=== PATIENT | female | born 1955 | race Caucasian/White ===

== ENCOUNTER 2020-05-15 11:32 | Observation (INO) | payer BC ==
[2020-05-15] MEDS ORDERED: ASPIRIN 81 MG PO STA (11:41)
--- NOTE | 2020-05-15 11:59 | ED ---
Chest Pain HPI - General Chief Complaint: Chest Pain Stated Complaint: chest pain Time Seen by Provider: 05/15/20 11:41 Source: patient Mode of arrival: ambulatory Limitations: no limitations - History of Present Illness Initial Comments: 64-year-old female with history of atrial fibrillation on eliquis presenting today for chief complaint of chest pain. Patient states yesterday evening she developed a aching dull sensation in her center of her chest as well as between her shoulder blades. She states she had some indigestion at that time. She denies any ripping or tearing sensation or severe pain. Patient states she had some slight pain with swallowing but denies any difficulty swallowing. Patient denies any abdominal pain she denies any jaw or arm pain she denies any shortness of breath syncope she denies any unilateral leg swelling cough, LE edema, or hemoptysis, denies hx DVT/PE. Denies pain with deep breath. Denies smoking history, denies family history of CAD, denies HTN, or DM> Patient denies vomiting or experiencing these symptoms before. WHen symptoms persisted today she decided to present to the ER for further evaluation and possible treatment. Patient appears well on arrival no acute distress, very pleasant. - Related Data Home Medications Medication Instructions Recorded Confirmed Acetaminophen Tab [Tylenol] 500 mg PO ONCE PRN 05/15/20 05/15/20 Apixaban [Eliquis] 5 mg PO BID 05/15/20 05/15/20 Atorvastatin [Lipitor] 10 mg PO MOWEFR 05/15/20 05/15/20 DULoxetine HCL [Cymbalta] 20 mg PO HS 05/15/20 05/15/20 DULoxetine HCL [Cymbalta] 30 mg PO HS 05/15/20 05/15/20 Levothyroxine Sodium 137 mcg PO DAILY 05/15/20 05/15/20 Multivitamins, Thera [Multivitamin 1 tab PO DAILY 05/15/20 05/15/20 (formulary)] Sotalol [Betapace] 80 mg PO BID 05/15/20 05/15/20 traZODone HCL [Desyrel] 50 mg PO HS 05/15/20 05/15/20 Allergies Allergy/AdvReac Type Severity Reaction Status Date / Time No Known Allergies Allergy Verified 05/15/20 13:45 Review of Systems ROS Statement: Those systems with pertinent positive or pertinent negative responses have been documented in the HPI. ROS Other: All systems not noted in ROS Statement are negative. EKG Findings - EKG Comments: EKG Findings:: Ventricular rate 67 bpm, OH interval 128 ms, QR sabianist 78 ms, QT/QTC 450/475. No ST elevation or depression. Past Medical History Past Medical History: Atrial Fibrillation, Hyperlipidemia History of Any Multi-Drug Resistant Organisms: None Reported Past Surgical History: Cholecystectomy, Hysterectomy Additional Past Surgical History / Comment(s): bunion Past Psychological History: Depression Smoking Status: Never smoker Past Alcohol Use History: None Reported Past Drug Use History: None Reported - Past Family History Father Family Medical History: No Reported History Additional Family Medical History / Comment(s): Father was healthy and lived to be 93 yrs old. Mother Family Medical History: Cancer Additional Family Medical History / Comment(s): Mother of colon cancer. She also had lung cancer. She was a smoker. General Exam - General Exam Comments Initial Comments: General: The patient is awake and alert, in no distress Eye: Pupils are equal, round and reactive to light, extra-ocular movements are intact. No nystagmus. There is normal conjunctiva bilaterally. No signs of icterus. Ears, nose, mouth and throat: There are moist mucous membranes and no oral lesions. Neck: The neck is supple, there is no tenderness or JVD. Cardiovascular: There is a regular rate and rhythm. No murmur, rub or gallop is appreciated. Respiratory: Lungs are clear to auscultation, respirations are non-labored, breath sounds are equal. No wheezes, stridor, rales, or rhonchi. Gastrointestinal: Soft, non-distended, non-tender abdomen without masses or organomegaly noted. There is no rebound or guarding present. Musculoskeletal: Normal ROM, no tenderness. Strength 5/5. Sensation intact. Radial and DP pulses equal bilaterally 2+. Neurological: A&O x 3. CN II-XII intact grossly, There are no obvious motor or sensory deficits. Coordination appears grossly intact. Speech is normal. Skin: Skin is warm and dry and no rashes or lesions are noted. No calf pain or swelling, no LE edema. Psychiatric: Cooperative, appropriate mood & affect, normal judgment. Limitations: no limitations Course Vital Signs 05/15/20 05/15/20 05/15/20 11:36 12:30 13:00 Temperature 98 F Pulse Rate 67 62 60 Respiratory 18 16 18 Rate Blood Pressure 106/71 100/71 110/81 O2 Sat by Pulse 97 96 94 L Oximetry 05/15/20 13:30 Temperature Pulse Rate 60 Respiratory 15 Rate Blood Pressure 101/66 O2 Sat by Pulse 96 Oximetry Chest Pain MDM - MDM 64yo female presenting to the ER today for chest discomfort, back fullness. CTA (-) for dissection. EKG no acute findings in normal sinus pt on eliquis. Patient CXR WNL. Patient troponin (-) initially. Patient case discussed inclu ding symptoms, labs, cxr, history with attending Dr. Bazan who is agreeable to admission. He contacted accepting admission provider. Disposition Clinical Impression: Chest discomfort, Throat pain, Indigestion Disposition: ADMITTED IP TO THIS HOSP Condition: Stable Is patient prescribed a controlled substance at d/c from ED?: No Time of Disposition: 12:57 Decision to Admit Reason: Admit from EC Decision Date: 05/15/20 Decision Time: 12:57
[2020-05-15 12:09] LABS: Basophils % (A) 0 %; Eosinophils # (A) 0.2 k/uL (0-0.7); Eosinophils % (A) 3 %; HGB 14.5 gm/dL (11.4-16.0); Lymphocytes # (A) 1.4 k/uL (1.0-4.8); Lymphocytes % (A) 27 %; MCH 30.1 pg (25.0-35.0); MCHC 32.3 g/dL (31.0-37.0); MCV 93.2 fL (80.0-100.0); Mean Platelet Volume 8.6; Monocytes # (A) 0.4 k/uL (0-1.0); Monocytes % (A) 7 %; Neutrophils % (A) 59 %; Platelet Count 218 k/uL (150-450); RBC 4.83 m/uL (3.80-5.40); RDW 12.5 % (11.5-15.5)
[2020-05-15 12:17] LABS: ALT 30 U/L (4-34); AST 35 U/L (14-36); African American GFR (CKD) >90 (>60 ml/min/1.73 sqM); Albumin 4.1 g/dL (3.5-5.0); Alkaline Phosphatase 61 U/L (38-126); Anion Gap 6 mmol/L; Blood Urea Nitrogen 22 mg/dL (7-17); Calcium 9.4 mg/dL (8.4-10.2); Carbon Dioxide 26 mmol/L (22-30); Chloride 105 mmol/L (98-107); Glucose 99 mg/dL (74-99); Magnesium 2.2 mg/dL (1.6-2.3); Non-African American GFR(CKD) >90 (>60 ml/min/1.73 sqM); Potassium 4.3 mmol/L (3.5-5.1); Prothrombin Time 10.6 sec (9.0-12.0); Sodium 137 mmol/L (137-145); Total Bilirubin 0.5 mg/dL (0.2-1.3); Total Protein 6.6 g/dL (6.3-8.2)
[2020-05-15 12:18] LABS: Partial Thromboplastin Time 26.4 sec (22.0-30.0)
--- NOTE | 2020-05-15 12:27 | XR ---
EXAMINATION TYPE: XR chest 2V DATE OF EXAM: 05/15/2020 COMPARISON: NONE HISTORY: Chest pain TECHNIQUE: Frontal and lateral views of the chest are obtained. FINDINGS: There is no focal air space opacity, pleural effusion, or pneumothorax seen. The cardiac silhouette size is within normal limits. The osseous structures are intact. There are overlying car diac leads. Aorta is dense. IMPRESSION: No acute cardiopulmonary process.
[2020-05-15] MEDS ORDERED: NITROGLYCERIN SL TABS 0.4 MG TAB SUBLINGUAL PRN (12:54)
--- NOTE | 2020-05-15 13:54 | CT ---
EXAMINATION TYPE: CT angio thor/abd pel aorta DATE OF EXAM: 05/15/2020 COMPARISON: None HISTORY: CP radiating to back CT DLP: 1530.9 mGycm CONTRAST: CTA thoracic and abdominal aorta with 3-D reconstruction is performed and without and with IV Contras t, patient injected with 100 ml mL of Isovue 370. Contrast CTA of the thoracic and abdominal aorta was performed from the lung apex through the base of the pelvis. 3-D reconstruction imaging obtained at a separate workstation. CT Chest: THORACIC AORTA: There is no evidence for aneurysm. No dissection or mediastinal hematoma. Mild ath eromatous changes are seen. LUNGS: The lungs are clear and free of infiltrate or atelectasis. No pulmonary nodule or mass is det ected. No pleural effusion or CT evidence of interstitial lung disease. MEDIASTINUM: The heart is not enlarged. No evidence for mediastinal mass or adenopathy. HILAR STRUCTURES: No evidence for mass. No hilar adenopathy is appreciated. OTHER: No significant abnormality. CONTRAST CT ABDOMEN AND PELVIS ABDOMENAL AORTA: No evidence for abdominal aortic aneurysm. No dissection. Iliac vessels are symmet baljit and patent. LIVER/GB- No significant abnormality is seen. PANCREAS- No significant abnormality is seen. SPLEEN- No significant abnormality is seen. ADRENALS- No significant abnormality is seen. KIDNEYS/BLADDER- No significant abnormality is seen. BOWEL- No Significant abnormality GENITAL ORGANS: No gross abnormality seen. LYMPH NODES- No greater than 1cm abdominal or pelvic lymph nodes are appreciated. OSSEOUS STRUCTURES- No significant abnormality is seen. OTHER- No significant abnormality is seen. IMPRESSION- No evidence for aneurysm or dissection.
[2020-05-15] MEDS ORDERED: ATORVASTATIN 10 MG TAB PO SCH (16:30)
--- NOTE | 2020-05-15 16:37 | P.HPIM ---
History of Present Illness this is a pleasant 64 years old female with past medical history of atrial fibrillation, hyperlipidemia on Eliquis, depression, hypothyroidism. she is a patient of Dr. Bravo.presents because of chest pain. She had this chest pain l ast night and when she woke up this morning she still have this chest pain, central radiating to the back between both shoulder blades, about 7/10 in severity felt like sharp, no her chest pain is gone but this morning when she drank coffee she got more worse chest pain and she decided to come to the hospital concern about her heart and stomach illness. No associated symptoms, no dyspnea, no sweating, no nausea vomiting, no palpitation, no dizziness. She denies smoking, alcohol or illicit drug She follow up with research subject as an outpatient for her A. fib with Dr. Moody vitals stable.Labs including CBC, INR, BMP and liver enzymes were unremarkable. Troponin is less then 0.012 EKG showed normal sinus rhythm at [address]-T changes.chest x- ray: No acute process. CTA of the thoracic and abdominal aorta: No aneurysm, no dissection. Lungs are clear with no infiltrate no pulmonary nodule or mass. No enlarged mediastinum. in the emergency room patient got aspirin 325 mg and to nitroglycerin Review of Systems CONSTITUTIONAL: No fever, no malaise, no fatigue. HEENT: No recent visual problems or hearing problems. Denied any sore throat. CARDIOVASCULAR: No orthopnea, PND, no palpitations, no syncope. PULMONARY: No shortness of breath, no cough, no hemoptysis. GASTROINTESTINAL: No diarrhea, no nausea, no vomiting, no abdominal pain. Normoactive bowel sounds. NEUROLOGICAL: No headaches, no weakness, no numbness. HEMATOLOGICAL: Denies any bleeding or petechiae. GENITOURINARY: Denies any burning micturition, frequency, or urgency. MUSCULOSKELETAL/RHEUMATOLOGICAL: Denies any joint pain, swelling, or any muscle pain. ENDOCRINE: Denies any polyuria or polydipsia. Past Medical History Past Medical History: Atrial Fibrillation, Hyperlipidemia Additional Past Medical History / Comment(s): Paroxysmal Afib, hypothyroid, bronchitis. History of Any Multi-Drug Resistant Organisms: None Reported Past Surgical History: Cholecystectomy, Hysterectomy Additional Past Surgical History / Comment(s): bunion Past Anesthesia/Blood Transfusion Reactions: No Reported Reaction, Motion Sickness Past Psychological History: Depression Smoking Status: Never smoker Past Alcohol Use History: None Reported Past Drug Use History: None Reported - Past Family History Father Family Medical History: No Reported History Additional Family Medical History / Comment(s): Father was healthy and lived to be 93 yrs old. Mother Family Medical History: Cancer Additional Family Medical History / Comment(s): Mother of colon cancer. She also had lung cancer. She was a smoker. Medications and Allergies Home Medications Medication Instructions Recorded Confirmed Type Acetaminophen Tab [Tylenol] 500 mg PO ONCE PRN 05/15/20 05/15/20 History Apixaban [Eliquis] 5 mg PO BID 05/15/20 05/15/20 History Atorvastatin [Lipitor] 10 mg PO MOWEFR 05/15/20 05/15/20 History DULoxetine HCL [Cymbalta] 20 mg PO HS 05/15/20 05/15/20 History DULoxetine HCL [Cymbalta] 30 mg PO HS 05/15/20 05/15/20 History Levothyroxine Sodium 137 mcg PO DAILY 05/15/20 05/15/20 History Multivitamins, Thera [Multivitamin 1 tab PO DAILY 05/15/20 05/15/20 History (formulary)] Sotalol [Betapace] 80 mg PO BID 05/15/20 05/15/20 History traZODone HCL [Desyrel] 50 mg PO HS 05/15/20 05/15/20 History Allergies Allergy/AdvReac Type Severity Reaction Status Date / Time No Known Allergies Allergy Verified 05/15/20 13:45 Physical Exam Vitals: Vital Signs Temp Pulse Pulse Resp BP BP Pulse Ox 05/15/20 15:50 99 05/15/20 14:59 98.2 F 63 14 118/76 99 05/15/20 14:00 64 21 102/68 96 05/15/20 13:30 60 15 101/66 96 05/15/20 13:00 60 18 110/81 94 L 05/15/20 12:30 62 16 100/71 96 05/15/20 11:36 98 F 67 18 106/71 97 Intake and Output 05/15/20 05/15/20 05/15/20 06:59 14:59 22:59 Other: Voiding Method Toilet # Voids 1 Weight 78.925 kg GENERAL: The patient is alert and oriented x3, not in any acute distress. Well developed, well nourished. HEENT: Pupils are round and equally reacting to light. EOMI. No scleral icterus. No conjunctival pallor. Normocephalic, atraumatic. No pharyngeal erythema. No thyromegaly. CARDIOVASCULAR: S1 and S2 present. No murmurs, rubs, or gallops. PULMONARY: Chest is clear to auscultation, no wheezing or crackles. ABDOMEN: Soft, nontender, nondistended, normoactive bowel sounds. No palpable organomegaly. MUSCULOSKELETAL: No joint swelling or deformity. EXTREMITIES: No cyanosis, clubbing, or pedal edema. NEUROLOGICAL: Gross neurological examination did not reveal any focal deficits. SKIN: No rashes. No petechiae Results CBC & Chem 7: 05/15/20 12:00 05/15/20 12:00 Labs: Abnormal Lab Results - Last 24 Hours (Table) 05/15/20 Range/Units 12:00 BUN 22 H (7-17) mg/dL Thrombosis Risk Factor Assmnt - Choose All That Apply Any of the Below Risk Factors Present?: Yes Each Factor Represents 1 point: Obesity (BMI >25) Other Risk Factors: Yes Each Risk Factor Represents 2 Points: Age 61-74 years Other congenital or acquired thrombophilia - If yes, enter type in comment: No Thrombosis Risk Factor Assessment Total Risk Factor Score: 3 Thrombosis Risk Factor Assessment Level: Moderate Risk Assessment and Plan Assessment: chest pain, Rule out cardiac causes Atrial fibrillation on Eliquis Hyperlipidemia Depression Hypothyroidism Plan: this is a pleasant 64 years old female who presents because of chest pain. With the suture troponin. EKG. Cardiology consult. Also will and antiacids and refer the patient for her PCP to check her blood her stomach illness once patient has been cleared by research subject and she agrees Labs and medication were reviewed.. Continue same treatment. Continue with symptomatic treatment. Resume home medication. Monitor lytes and vitals. DVT and GI prophylaxis. Further recommendations of the clinical course of the patient DVT prophylaxis: Eliquis GI Prophylaxis: Protonix Prognosis is guarded
[2020-05-15] MEDS: PANTOPRAZOLE 40 MG/10 ML VIAL IVP SCH (17:17)
[2020-05-15] MEDS ORDERED: DULoxetine HCL 30 MG CAPSULE.DR PO SCH (21:00)
[2020-05-15] MEDS ORDERED: DULoxetine HCL 20 MG CAPSULE.DR PO SCH (21:00)
[2020-05-15] MEDS ORDERED: traZODone HCL 50 MG TAB PO SCH (21:00)
[2020-05-15] MEDS: APIXABAN 5 MG TAB PO SCH (22:08)
[2020-05-15] MEDS: SOTALOL 80 MG TAB PO SCH (22:09)
[2020-05-16] MEDS ORDERED: LEVOTHYROXINE 137 MCG TAB PO SCH (06:30)
[2020-05-16 08:34] LABS: Cholesterol 181 mg/dL (<200); HDL Cholesterol 61 mg/dL (40-60); LDL Cholesterol,Calculated 98 mg/dL (0-99); Triglycerides 108 mg/dL (<150)
[2020-05-16] MEDS ORDERED: ASPIRIN 325 MG TAB PO SCH (09:00)
[2020-05-16] MEDS: APIXABAN 5 MG TAB PO SCH (09:24)
[2020-05-16] MEDS: PANTOPRAZOLE 40 MG/10 ML VIAL IVP SCH (09:24)
[2020-05-16] MEDS: SOTALOL 80 MG TAB PO SCH (09:25)
--- NOTE | 2020-05-16 09:53 | CONS ---
CONSULTATION HISTORY OF PRESENT ILLNESS: Juliet Griffiths is a 64-year-old lady who has her primary care in the [place] area, sees Dr. 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 She carries a diagnosis of paroxysmal atrial fibrillation and hypothyroidism. She also has hyperlipidemia. She is on Eliquis, levothyroxine and Lipitor and Betapace. She came into the hospital because of an episode of what she describes as discomfort in the chest. The quality of the pain is very atypical. It occurred when she was at rest, not when she was doing any physical activity. Achy feeling in the center of the chest with some radiation to the back and also to the shoulder blades. She had a CAT scan of the chest, which did not reveal any aortic pathology. She has 3 negative troponins, 2 unremarkable EKGs and complete resolution of chest pain. She is doing well at the time of my evaluation, virtually asymptomatic. PAST MEDICAL HISTORY: 1. Paroxysmal atrial fibrillation. 2. Hypothyroidism. 3. Hyperlipidemia. PAST SURGICAL HISTORY: Status post hysterectomy and cholecystectomy. ALLERGIES: None. MEDICATIONS: Include sotalol 80 mg b.i.d., levothyroxine 137 mcg daily, trazodone, Cymbalta, Eliquis 5 mg b.i.d. and Lipitor 10 mg every other day. PHYSICAL EXAMINATION: VITAL SIGNS: On examination, blood pressure is 108/70. Pulse rate 70 regular. HEENT unremarkable. Fundus was not examined by me. NECK is supple. No JVD. I do not hear a carotid bruit. There is no thyromegaly. HEART exam reveals S1, S2 heard normally. No rub, murmur or gallop. LUNGS are clear. ABDOMEN is soft, nontender. No organomegaly. LOWER EXTREMITIES reveal normal pulses. No edema. CENTRAL NERVOUS SYSTEM is normal. EKG revealed sinus mechanism, no acute changes. IMPRESSION: 1. Atypical chest pain. 2. History of paroxysmal atrial fibrillation, now in sinus rhythm on Eliquis. 3. History of hypothyroidism. RECOMMENDATIONS: I am recommending that her pain is atypical. She had a negative stress test about 2 years ago. We will increase activity, ambulate her briskly in the hallways. If she has no further symptoms, she can be discharged with the understanding she should have a stress test next week. The patient wishes to have the stress test through her molding supervisor and she will make it a point to have this done next week. If she has any further symptoms while she is here, I will recommend coronary angiography. Discussed my thoughts in detail with the patient. We will increase activity and if no symptoms, she will be discharged. Thank you very much for the consult. FUENTES / TEO: [id number] /
[2020-05-16 14:25] VITALS: BP 100/60; PULSE 60; RESP 14; TEMP 98.2
--- NOTE | 2020-05-16 23:43 | DS ---
DISCHARGE SUMMARY DATE OF SERVICE: 05/16/2020. FINAL DIAGNOSES: 1. Chest pain, myocardial infarction ruled out, possible unstable angina. 2. Atrial fibrillation, on Eliquis. 3. Hyperlipidemia. 4. History of depression. 5. Hypothyroidism. DISCHARGE DISPOSITION: The patient will be discharged in stable condition with guarded prognosis. HISTORY OF PRESENT ILLNESS: This 64-year-old woman with the past medical history of multiple medical problems, presented with chest pain, myocardial infarction ruled out. Cardiology recommended outpatient followup. The patient is also following the patient's own preboarder. I recommend the patient to obtain outpatient stress test. Otherwise, a thoracic aortic CT scan was also done during the hospitalization. On exam, vitals are stable. Cardiovascular S1, S2. Abdomen soft. Nervous system: No focal deficits. The thoracic aortic CT was normal. DISCHARGE INSTRUCTIONS/MEDICATION: 1. Diet is cardiac diet. 2. Activity limited until followup. 3. Follow up with Dr. Gricel Bravo in 1-2 days. 4. Follow up with Cardiology as recommended for possible stress test. 5. Medications are sotalol 80 mg p.o. b.i.d. 6. Cymbalta 50 mg q.h.s. 7. Desyrel 50 mg q.h.s. 8. Eliquis 5 mg p.o. b.i.d. 9. Levothyroxine 137 mcg p.o. daily. 10.Lipitor 10 mg p.o. Monday, Monday, Monday, as mentioned earlier. 11.Multivitamins 1 p.o. daily. 12.Tylenol 500 mg. 13.Nitrostat 0.4 sublingual p.r.n. Once again the patient discharged in stable condition with guarded prognosis. MMODL / IJN: [id number] /
== END 2020-05-16 14:45 | disposition home or self-care (01) ==
LOC: EC 11:32 → 1SOBS 12:54 → INTOOBSV 12:55 → OBSVTOIN 12:55 → 1SOBS 14:47 → UNDODISIN 05-16 14:45
PROVIDERS: ADMIT Internal Medicine; ATTEND Internal Medicine
DX: R07.89 Other chest pain (principal); R07.0 Pain in throat; K30 Functional dyspepsia; I48.0 Paroxysmal atrial fibrillation; E78.5 Hyperlipidemia, unspecified; F32.9 Major depressive disorder, single episode, unspecified; E03.9 Hypothyroidism, unspecified; E66.9 Obesity, unspecified; Z68.27 Body mass index [BMI] 27.0-27.9, adult; Z03.818 Encounter for observation for suspected exposure to other biological agents ruled out; Z79.01 Long term (current) use of anticoagulants; Z79.899 Other long term (current) drug therapy; Z79.890 Hormone replacement therapy; Z90.49 Acquired absence of other specified parts of digestive tract; Z90.710 Acquired absence of both cervix and uterus; Z98.890 Other specified postprocedural states; Z87.09 Personal history of other diseases of the respiratory system; Z80.0 Family history of malignant neoplasm of digestive organs; Z81.2 Family history of tobacco abuse and dependence; Z80.1 Family history of malignant neoplasm of trachea, bronchus and lung
CPT/HCPCS: 93005 ×2; 96374; 96376; 99285; 36415; 80061; 80053; 83690; 83735; 84484; 85025; 85610; 85730; 71046; 71275; 74174; G0378 ×2; U0003; C9113 ×2; Q9967

== ENCOUNTER → 2021-11-29 | Outpatient (CLI) | payer BC ==
--- NOTE | 2021-11-29 12:30 | MM ---
Reason for exam: screening (asymptomatic). Last mammogram was performed 1 year and 3 months ago. History: Patient is postmenopausal. Physical Findings: A clinical breast exam by your physician is recommended on an annual basis and results should be correlated with mammographic findings. MG 3D Screening Mammo W/Cad Bilateral CC and MLO view(s) were taken. Prior study comparison: August 24, 2020, mammogram, performed at [facility]. The breast tissue is heterogeneously dense. This may lower the sensitivity of mammography. There are benign appearing vascular calcifications bilaterally. There is no discrete abnormality. ASSESSMENT: Benign, BI-RAD 2 RECOMMENDATION: Routine screening mammogram of both breasts in 1 year.
== END | disposition home or self-care (01) ==
LOC: RADMAMWWP 07:14
PROVIDERS: ATTEND Obstetrics & Gynecology
DX: Z12.31 Encounter for screening mammogram for malignant neoplasm of breast (principal); Z78.0 Asymptomatic menopausal state
CPT/HCPCS: 77063; 77067

== ENCOUNTER 2022-02-24 10:34 | Observation (INO) | payer BC ==
[2022-02-24 11:33] LABS: Basophils % (A) 1 %; Eosinophils # (A) 0.2 k/uL (0-0.7); Eosinophils % (A) 4 %; HCT 44.4 % (34.0-46.0); HGB 14.6 gm/dL (11.4-16.0); Lymphocytes # (A) 1.3 k/uL (1.0-4.8); Lymphocytes % (A) 27 %; MCH 30.3 pg (25.0-35.0); MCHC 32.8 g/dL (31.0-37.0); MCV 92.3 fL (80.0-100.0); Monocytes # (A) 0.3 k/uL (0-1.0); Monocytes % (A) 7 %; Neutrophils # (A) 2.8 k/uL (1.3-7.7); Neutrophils % (A) 60 %; Platelet Count 213 k/uL (150-450); RDW 12.8 % (11.5-15.5); WBC 4.7 k/uL (3.8-10.6)
[2022-02-24 11:41] LABS: INR 1.1 (<1.2)
[2022-02-24 11:42] LABS: Partial Thromboplastin Time 27.5 sec (22.0-30.0); Prothrombin Time 11.5 sec (9.0-12.0)
[2022-02-24 11:57] LABS: Appearance,Urine Clear (Clear); Bilirubin,Urine Negative (Negative); Blood,Urine Negative (Negative); Color,Urine Yellow; Glucose,Urine (UA) Negative (Negative); Ketones,Urine Trace (Negative); Leukocyte Esterase,Urine Negative (Negative); Nitrite,Urine Negative (Negative); Protein,Urine Negative (Negative); Specific Gravity,Urine 1.017 (1.001-1.035); Urobilinogen,Urine <2.0 mg/dL (<2.0)
[2022-02-24 12:01] LABS: ALT 19 U/L (4-34); AST 30 U/L (14-36); African American GFR (CKD) >90 (>60 ml/min/1.73 sqM); Alkaline Phosphatase 53 U/L (38-126); Anion Gap 6 mmol/L; Blood Urea Nitrogen 22 mg/dL (7-17); Calcium 9.4 mg/dL (8.4-10.2); Carbon Dioxide 28 mmol/L (22-30); Chloride 102 mmol/L (98-107); Glucose 95 mg/dL (74-99); Magnesium 2.3 mg/dL (1.6-2.3); Non-African American GFR(CKD) >90 (>60 ml/min/1.73 sqM); Sodium 136 mmol/L (137-145); Total Bilirubin 0.5 mg/dL (0.2-1.3); Total Protein 6.6 g/dL (6.3-8.2)
[2022-02-24] MEDS ORDERED: SODIUM CHLORIDE 0.9% 500 ML 500 ML IV ONE (12:03)
--- NOTE | 2022-02-24 12:15 | XR ---
EXAMINATION TYPE: XR chest 2V DATE OF EXAM: 02/24/2022 COMPARISON: 05/15/2020 HISTORY: 66-year-old female with chest pain TECHNIQUE: PA and lateral views FINDINGS: Heart normal size. Mild hyperinflation and mild interstitial prominence. Some mild central peribronch ial cuffing is noted. Some strandy atelectasis in the lower lungs. No consolidation or pleural effusi on. Chronic healed fracture deformity left midclavicular shaft. IMPRESSION: COPD. Some central peribronchial cuffing could reflect superimposed bronchitis or a prominent compone nt of chronic bronchitis. No definite acute process otherwise seen.
[2022-02-24] MEDS ORDERED: NALOXONE 0.4 MG/ML 1 ML VIAL IV PRN (12:54)
[2022-02-24] MEDS ORDERED: ACETAMINOPHEN TAB 325 MG TAB PO PRN (12:59)
[2022-02-24] MEDS: SOTALOL 80 MG TAB PO SCH ×2 (14:37→20:40)
[2022-02-24] MEDS: APIXABAN 5 MG TAB PO SCH ×2 (14:37→19:42)
--- NOTE | 2022-02-24 17:39 | ED ---
General Adult HPI - General Chief complaint: Chest Pain Stated complaint: Chest pain Time Seen by Provider: 02/24/22 10:41 Source: patient Mode of arrival: wheelchair Limitations: no limitations - History of Present Illness Initial comments: Patient is a 66-year-old female presenting with chief complaint of palpitations and chest discomfort. Patient has a history of atrial fibrillation, throughout the week she has felt increased sensations of break through A. fib. Over the last day she has felt the sensation of a "knot" in her chest, and earlier today she felt pre-syncopal. Patient is on sotalol and eliquis. Patient denies nausea, vomiting, abdominal pain, shortness of breath, recent fall, headache, diarrhea, rash, weakness, syncope, seizure. - Related Data Home Medications Medication Instructions Recorded Confirmed Apixaban [Eliquis] 5 mg PO BID 05/15/20 02/24/22 Sotalol [Betapace] 80 mg PO BID 05/15/20 02/24/22 DULoxetine HCL [Cymbalta] 60 mg PO HS 02/24/22 02/24/22 traZODone HCL 100 mg PO HS 02/24/22 02/24/22 Allergies Allergy/AdvReac Type Severity Reaction Status Date / Time No Known Allergies Allergy Verified 02/24/22 11:12 Review of Systems ROS Statement: Those systems with pertinent positive or pertinent negative responses have been documented in the HPI. ROS Other: All systems not noted in ROS Statement are negative. Past Medical History Past Medical History: Atrial Fibrillation, Hyperlipidemia Additional Past Medical History / Comment(s): Paroxysmal Afib, hypothyroid, bronchitis, pt states her physician took her off cholesterol medication and she does not know why. History of Any Multi-Drug Resistant Organisms: None Reported Past Surgical History: Cholecystectomy, Hysterectomy, Orthopedic Surgery, Tonsillectomy Additional Past Surgical History / Comment(s): Bunionectomies bilateral feet, colonoscopy. Past Anesthesia/Blood Transfusion Reactions: Motion Sickness Smoking Status: Former smoker - Past Family History Father Family Medical History: No Reported History Additional Family Medical History / Comment(s): Father was healthy and lived to be 93 yrs old. Mother Family Medical History: Cancer Additional Family Medical History / Comment(s): Mother of colon cancer. She also had lung cancer. She was a smoker. General Exam Limitations: no limitations General appearance: alert, in no apparent distress Head exam: Present: atraumatic, normocephalic, normal inspection Eye exam: Present: normal appearance, PERRL, EOMI. Absent: scleral icterus, conjunctival injection, periorbital swelling Neck exam: Present: normal inspection Respiratory exam: Present: normal lung sounds bilaterally. Absent: respiratory distress, wheezes, rales, rhonchi, stridor Cardiovascular Exam: Present: regular rate, normal rhythm, normal heart sounds. Absent: systolic murmur, diastolic murmur, rubs, gallop, clicks Neurological exam: Present: alert, oriented X3, CN II-XII intact Psychiatric exam: Present: normal affect, normal mood Skin exam: Present: warm, dry, intact, normal color. Absent: rash Course Vital Signs 02/24/22 02/24/22 02/24/22 10:35 12:59 14:38 Temperature 97.6 F 97.6 F Pulse Rate 74 62 Respiratory 16 14 Rate Blood Pressure 120/74 109/72 O2 Sat by Pulse 97 98 98 Oximetry EKG Findings - EKG Comments: EKG Findings:: Rate of 69. Sinus rhythm. GA interval of 133. This was also shown to and interpreted by my attending Dr. Hagen - EKG Results: EKG: interpreted by KAMRYN WNL, sinus rhythm Medical Decision Making - Medical Decision Making Patient is a 66-year-old female presenting with chief complaint of palpitations and chest discomfort. Patient states that throughout the week she has been having a sensation of breakthrough A. fib. She also states that for the last day or so she has been having a sensation of a "knot" in her chest. This morning she began to feel faint, she did not lose consciousness but she did present to the ER. On examination heart and lungs are clear to auscultation, regular rhythm. EKG is within normal limits, there is sinus rhythm, no signs of A. fib. Lab work is unremarkable. Chest x-ray describes COPD. Patient is an appropriate candidate for admission for continued observation due to chest pain. I spoke with Dr. Miguel who agreed with the plan and accepted admission. I explained the plan to the patient and answered all questions, she conveyed verbal understanding and agreed to the plan. I discussed this case with my attending Dr. Hagen. - Lab Data Result diagrams: 02/24/22 11:19 02/24/22 11:19 Lab Results 02/24/22 02/24/22 02/24/22 Range/Units 11:19 11:19 11:19 WBC 4.7 (3.8-10.6) k/uL RBC 4.80 (3.80-5.40) m/uL Hgb 14.6 (11.4-16.0) gm/dL Hct 44.4 (34.0-46.0) % MCV 92.3 (80.0-100.0) fL MCH 30.3 (25.0-35.0) pg MCHC 32.8 (31.0-37.0) g/dL RDW 12.8 (11.5-15.5) % Plt Count 213 (150-450) k/uL MPV 8.0 Neutrophils % 60 % Lymphocytes % 27 % Monocytes % 7 % Eosinophils % 4 % Basophils % 1 % Neutrophils # 2.8 (1.3-7.7) k/uL Lymphocytes # 1.3 (1.0-4.8) k/uL Monocytes # 0.3 (0-1.0) k/uL Eosinophils # 0.2 (0-0.7) k/uL Basophils # 0.0 (0-0.2) k/uL PT 11.5 (9.0-12.0) sec INR 1.1 (<1.2) APTT 27.5 (22.0-30.0) sec Sodium (137-145) mmol/L Potassium (3.5-5.1) mmol/L Chloride (98-107) mmol/L Carbon Dioxide (22-30) mmol/L Anion Gap mmol/L BUN (7-17) mg/dL Creatinine (0.52-1.04) mg/dL Est GFR (CKD-EPI)AfAm (>60 ml/min/1.73 sqM) Est GFR (CKD-EPI)NonAf (>60 ml/min/1.73 sqM) Glucose (74-99) mg/dL Calcium (8.4-10.2) mg/dL Magnesium (1.6-2.3) mg/dL Total Bilirubin (0.2-1.3) mg/dL AST (14-36) U/L ALT (4-34) U/L Alkaline Phosphatase (38-126) U/L Troponin I (0.000-0.034) ng/mL NT-Pro-B Natriuret Pep pg/mL Total Protein (6.3-8.2) g/dL Albumin (3.5-5.0) g/dL Urine Color Yellow Urine Appearance Clear (Clear) Urine pH 7.0 (5.0-8.0) Ur Specific [place] 1.017 (1.001-1.035) Urine Protein Negative (Negative) Urine Glucose (UA) Negative (Negative) Urine Ketones Trace H (Negative) Urine Blood Negative (Negative) Urine Nitrite Negative (Negative) Urine Bilirubin Negative (Negative) Urine Urobilinogen <2.0 (<2.0) mg/dL Ur Leukocyte Esterase Negative (Negative) 02/24/22 02/24/22 02/24/22 Range/Units 11:19 11:19 11:19 WBC (3.8-10.6) k/uL RBC (3.80-5.40) m/uL Hgb (11.4-16.0) gm/dL Hct (34.0-46.0) % MCV (80.0-100.0) fL MCH (25.0-35.0) pg MCHC (31.0-37.0) g/dL RDW (11.5-15.5) % Plt Count (150-450) k/uL MPV Neutrophils % % Lymphocytes % % Monocytes % % Eosinophils % % Basophils % % Neutrophils # (1.3-7.7) k/uL Lymphocytes # (1.0-4.8) k/uL Monocytes # (0-1.0) k/uL Eosinophils # (0-0.7) k/uL Basophils # (0-0.2) k/uL PT (9.0-12.0) sec INR (<1.2) APTT (22.0-30.0) sec Sodium 136 L (137-145) mmol/L Potassium 4.0 (3.5-5.1) mmol/L Chloride 102 (98-107) mmol/L Carbon Dioxide 28 (22-30) mmol/L Anion Gap 6 mmol/L BUN 22 H (7-17) mg/dL Creatinine 0.67 (0.52-1.04) mg/dL Est GFR (CKD-EPI)AfAm >90 (>60 ml/min/1.73 sqM) Est GFR (CKD-EPI)NonAf >90 (>60 ml/min/1.73 sqM) Glucose 95 (74-99) mg/dL Calcium 9.4 (8.4-10.2) mg/dL Magnesium 2.3 (1.6-2.3) mg/dL Total Bilirubin 0.5 (0.2-1.3) mg/dL AST 30 (14-36) U/L ALT 19 (4-34) U/L Alkaline Phosphatase 53 (38-126) U/L Troponin I <0.012 (0.000-0.034) ng/mL NT-Pro-B Natriuret Pep 35 pg/mL Total Protein 6.6 (6.3-8.2) g/dL Albumin 4.0 (3.5-5.0) g/dL Urine Color Urine Appearance (Clear) Urine pH (5.0-8.0) Ur Specific [place] (1.001-1.035) Urine Protein (Negative) Urine Glucose (UA) (Negative) Urine Ketones (Negative) Urine Blood (Negative) Urine Nitrite (Negative) Urine Bilirubin (Negative) Urine Urobilinogen (<2.0) mg/dL Ur Leukocyte Esterase (Negative) - Radiology Data Radiology results: report reviewed Chest x-ray: COPD. Some central peribronchial cuffing could reflect superimposed bronchitis or a prominent component of chronic bronchitis. No definite acute process otherwise seen. Disposition Clinical Impression: Chest pain, Palpitations with regular cardiac rhythm Disposition: ADMITTED IP TO THIS [facility] Condition: Good Decision Date: 02/24/22
--- NOTE | 2022-02-24 19:22 | P.HPIM ---
History of Present Illness H&P Date: 02/24/22 Chief Complaint: Chest pain/paroxysmal atrial fibrillation HISTORY OF PRESENT ILLNESS: This is a 66-year-old female a new patient of mine used to see Dr. Bravo in [place] prior to her move to [facility] with a previous medical history significant for hypothyroidism, history of depressive disorder, mixed hyperlipidemia, paroxysmal atrial fibrillation and her the care of cardiology in the [facility] patient presented to the emergency department at [facility] today because of chest tightness in the middle of the chest associated with increased palpitation which she described as a flareup of her atrial fibrillation on and off that has been happening over the last few days, patient contacted her dental technology advisor and she did not get any call back, so she ended up coming to the ER for evaluation initial evaluation showed a a twelve-lead EKG with a normal sinus rhythm and no acute ST-T wave changes, cardiac enzymes are negative the rest of the laboratory evaluation were all normal but because of the presentation she was admitted to the hospital for evaluation and monitoring and for consultation by our cardiology group REVIEW OF SYSTEMS: Constitutional: No documented fever, no chills, no night sweats. No weight change. No weakness, fatigue or lethargy. No daytime sleepiness. HEENT: No headache. No blurred vision or double vision, no loss of vision. No loss of Hearing, no ringing in the ears, no dizziness. No nasal drainage or congestion. No epistaxis. No sore throat. Lungs: No shortness of breath, no cough, no sputum production. No wheezing. Reports dyspnea with activity. Cardiovascular: Positive for chest pain, no lower extremity edema. Positive for palpitations. No paroxysmal nocturnal dyspnea. No orthopnea. No lighth eadedness or dizziness. No syncopal episodes. Abdominal: Reports no abdominal pain. No nausea, vomiting. No diarrhea. No constipation. No bloody or tarry stools reports loss of appetite. Genitourinary: No dysuria, increased frequency, urgency. No urinary retention. Musculoskeletal: No myalgias. No muscle weakness, no gait dysfunction, no frequent falls. No back pain. No neck pain. Integumentary: No wounds, no lesions. No rash or pruritus. No unusual bruising. No change in hair or nails. Neurologic: No aphasia. No facial droop. No change in mentation. No head injury. No headache. No paralysis. No paresthesia. Psychiatric: No depression. No anxiety. No mood swings. Endocrine: No abnormal blood sugars. No weight change. PAST MEDICAL HISTORY: Mixed hyperlipidemia. Paroxysmal atrial fibrillation . Hypothyroidism. Insomnia. Depressive disorder. PAST SURGICAL HISTORY: Tonsillectomy. Right carpal tunnel release. Colonoscopy 2019. Total hysterectomy due to dysfunctional uterine bleeding in 2011 Cholecystectomy. Bunionectomy 2. SOCIAL HISTORY: Patient smoked about a pack every day since the age of 18 and quit in 1978, she denies any alcohol ingestion no drug use or abuse. FAMILY HISTORY: Father at age of 93 from congestive heart failure, mother at age of 77 from colon cancer with metastatic disease to the lung, she also had COPD, patient has 2 brothers both alive and well and she has 2 sisters both healthy no major medical problems. PHYSICAL EXAMINATION: General: 66-year-old female laying down in bed in no apparent distress. HEENT: Head is atraumatic, normocephalic, pupils were equal round reactive to light and recommendation, extraocular muscle movement were intact, sclera nonicteric, conjunctivae were pale, mucous membranes of the mouth are somewhat dry. Neck: Supple, no JVP, normal carotid upstroke bilaterally, no lymphadenopathy. Chest: Decreased breath sounds at the bases, few rhonchi, no extremity wheezes, no chest wall tenderness, no intercostal retractions. Heart: First heart sound is normal, second heart sounds normal there is no gallop or murmur. Abdomen: Soft, nontender, nondistended, positive bowel sounds. There is no hepatosplenomegaly. Extremities: There is no edema no calf tenderness DP +2 bilaterally. Neurologic examination: Patient is awake alert and oriented X3, cranial nerves II-12 appear grossly intact, muscle power were 5 out of 5 in upper extremities and 5 out of 5 in bilateral lower extremities, deep tendon reflexes normal bilaterally. ASSESSMENT AND PLAN: 1. Chest pain likely noncardiac. Cardiac enzymes so far are negative, 12-lead EKG did not show evidence of acute ST-T wave changes, we will resume the patient home medication, we will obtain echocardiogram for evaluation, patient will be seen in consultation by cardiology likely would be discharged home in the next 24 hours. 2. Paroxysmal atrial fibrillation currently in sinus rhythm. Continue patient on Eliquis 5 mg orally twice every day. Continue patient on sotalol 80 mg orally twice every day. 3. Hypothyroidism. Continue patient on Synthroid 100 g orally once every day. 4. Insomnia. Continue trazodone 100 mg at bedtime. 5. Depressive disorder. Continue Cymbalta 60 mg orally once every day. 6. DVT prophylaxis. Continue Eliquis 5 mg orally bid 7. GI prophylaxis. Start the patient on Protonix 40 mg orally once every day. 8. Observation. 9. Full code. Past Medical History Past Medical History: Atrial Fibrillation, Hyperlipidemia Additional Past Medical History / Comment(s): Paroxysmal Afib, hypothyroid, bronchitis, pt states her physician took her off cholesterol medication and she does not know why. History of Any Multi-Drug Resistant Organisms: None Reported Past Surgical History: Cholecystectomy, Hysterectomy, Orthopedic Surgery, Tonsillectomy Additional Past Surgical History / Comment(s): Bunionectomies bilateral feet, colonoscopy. Past Anesthesia/Blood Transfusion Reactions: Motion Sickness Smoking Status: Former smoker - Past Family History Father Family Medical History: No Reported History Additional Family Medical History / Comment(s): Father was healthy and lived to be 93 yrs old. Mother Family Medical History: Cancer Additional Family Medical History / Comment(s): Mother of colon cancer. She also had lung cancer. She was a smoker. Medications and Allergies Home Medications Medication Instructions Recorded Confirmed Type Apixaban [Eliquis] 5 mg PO BID 05/15/20 02/24/22 History Sotalol [Betapace] 80 mg PO BID 05/15/20 02/24/22 History DULoxetine HCL [Cymbalta] 60 mg PO HS 02/24/22 02/24/22 History traZODone HCL 100 mg PO HS 02/24/22 02/24/22 History Allergies Allergy/AdvReac Type Severity Reaction Status Date / Time No Known Allergies Allergy Verified 02/24/22 11:12 Physical Exam Vitals: Vital Signs Temp Pulse Resp BP Pulse Ox 02/24/22 14:38 97.6 F 62 14 109/72 98 02/24/22 12:59 98 02/24/22 10:35 97.6 F 74 16 120/74 97 Intake and Output 02/24/22 02/24/22 02/24/22 06:59 14:59 22:59 Other: # Voids 1 Weight 79.379 kg 79.379 kg Results CBC & Chem 7: 02/24/22 11:19 02/24/22 11:19 Labs: Abnormal Lab Results - Last 24 Hours (Table) 02/24/22 02/24/22 Range/Units 11:19 11:19 Sodium 136 L (137-145) mmol/L BUN 22 H (7-17) mg/dL Urine Ketones Trace H (Negative) Thrombosis Risk Factor Assmnt - Choose All That Apply Any of the Below Risk Factors Present?: Yes Each Factor Represents 1 point: Obesity (BMI >25) Other Risk Factors: Yes Each Risk Factor Represents 2 Points: Age 61-74 years Other congenital or acquired thrombophilia - If yes, enter type in comment: No Thrombosis Risk Factor Assessment Total Risk Factor Score: 3 Thrombosis Risk Factor Assessment Level: Moderate Risk
[2022-02-24] MEDS ORDERED: traZODone HCL 100 MG TAB PO SCH (21:00)
[2022-02-24] MEDS ORDERED: DULoxetine HCL 60 MG CAPSULE.DR PO SCH (21:00)
[2022-02-25] MEDS ORDERED: REGADENOSON 0.4 MG/5 ML SYRINGE IV PRN (08:17)
[2022-02-25] MEDS ORDERED: CAFFEINE CITRATE 60 MG/3 ML VIAL IV PRN (08:17)
[2022-02-25] MEDS ORDERED: AMINOPHYLLINE 500 MG/20 ML VIAL IV PRN (08:17)
--- NOTE | 2022-02-25 09:51 | P.CRDCN ---
History of Present Illness History of present illness: HISTORY OF PRESENTING ILLNESS This is a pleasant 66-year-old female past medical history significant for paroxysmal atrial fibrillation on Eliquis and sotalol. She follows with Dr. Moody. We have been asked to see in consultation for chest pain. Patient presents emergency department with complaints of chest discomfort and palpitations. She states her symptoms started on Monday. She describes it as a "knot" in the center of her chest and also felt chest tightness. She also was experiencing palpitations, she states is similar as if she is going in and out of atrial fibrillation in the past. Her symptoms resolved that day, however yesterday her symptoms returned. She had chest discomfort. Nonradiating, nonexertional. She had associated lightheadedness and dizziness. She called her fountain attendant's office but did not hear response and presented to the emergency department for further evaluation. She denies any further chest pain. She denies any shortness of breath, loss of consciousness or syncope, diaphoresis, nausea, vomiting. No specific aggravating or alleviating factors. She denies any history of CAD, hypertension, diabetes, HI, stroke, dyslipidemia. She is a former smoker quit in the late 1970s. DIAGNOSTICS EKG reveals sinus rhythm, heart rate 69, nonspecific T wave abnormalities in inferior leads and aVL. Prior ekg with similar findings Telemetry tracings indicate sinus mechanism with heart rate in the 60s, with one episode of 7 beat nonsustained monomorphic VT Chest xray mild hyperinflation and mild interstitial prominence. Laboratory reviewed, troponin negative 2, sodium 136, potassium 4.0, BUN 22, serum creatinine 0.6, proBNP 35, CBC unremarkable Current home medications include sotalol 80 mg twice a day, Eliquis 5 mg twice a day, Cymbalta, trazodone REVIEW OF SYSTEMS At the time of my exam: CONSTITUTIONAL: Denies fever or chills. CARDIOVASCULAR: Reports chest discomfort and palpitations denies shortness of breath, orthopnea, PND RESPIRATORY: Denies cough. GASTROINTESTINAL: Denies abdominal pain, diarrhea, constipation, nausea or vomiting. MUSCULOSKELETAL: Denies myalgias. NEUROLOGIC: Denies numbness, tingling, headache or weakness. ENDOCRINE: Denies fatigue, weight change, polydipsia or polyurina. GENITOURINARY: Denies burning, hematuria or urgency with micturation. HEMATOLOGIC: Denies history of anemia or bleeding. PHYSICAL EXAMINATION Blood pressure 100/67, heart rate 67, afebrile, saturations 97% on room air CONSTITUTIONAL: No apparent distress. HEENT: Head is normocephalic. Pupils are equal, round. Sclerae anicteric. Mucous membranes of the mouth are moist. No JVD. No carotid bruit. CHEST EXAMINATION: Lungs are clear to auscultation. No chest wall tenderness is noted on palpation or with deep breathing. HEART EXAMINATION: Regular rate and rhythm. S1, S2 heard. No murmurs, gallops or rub. ABDOMEN: Soft, nontender. Positive bowel sounds. EXTREMITIES: 2+ peripheral pulses, no lower extremity edema and no calf tenderness. SKIN: Warm, dry NEUROLOGIC EXAMINATION: Patient is awake, alert and oriented x3. ASSESSMENT Chest discomfort, atypical, acute coronary syndrome has been ruled out Palpitations Paroxysmal atrial fibrillation on Eliquis PLAN An acute coronary event has been ruled out with no EKG evidence of ischemia and negative cardiac enzymes. Telemetry reviewed, patient did have 1 episode of 7 beat run of monomorphic NSVT, no further episodes and has been maintaining sinus mechanism with HR 60s Obtain 2D echocardiogram and doppler study to assess cardiac structure and function. Perform Lexiscan stress test to assess for stress induced cardiac ischemia. If abnormal will consider coronary angiography. If Lexiscan stress test is negative and echocardiogram stable, no further inpat ient workup from a cardiology perspective and recommend follow-up with her fountain attendant Dr. Moody within 1 week. Thank you kindly for this consultation. Nurse practitioner note has been reviewed by physician. Signing provider agrees with the documented findings, assessment, and plan of care. Past Medical History Past Medical History: Atrial Fibrillation, Hyperlipidemia Additional Past Medical History / Comment(s): Paroxysmal Afib, hypothyroid, bronchitis, pt states her physician took her off cholesterol medication and she does not know why. History of Any Multi-Drug Resistant Organisms: None Reported Past Surgical History: Cholecystectomy, Hysterectomy, Orthopedic Surgery, Tonsillectomy Additional Past Surgical History / Comment(s): Bunionectomies bilateral feet, colonoscopy. Past Anesthesia/Blood Transfusion Reactions: Motion Sickness Smoking Status: Former smoker - Past Family History Father Family Medical History: No Reported History Additional Family Medical History / Comment(s): Father was healthy and lived to be 93 yrs old. Mother Family Medical History: Cancer Additional Family Medical History / Comment(s): Mother of colon cancer. She also had lung cancer. She was a smoker. Medications and Allergies Home Medications Medication Instructions Recorded Confirmed Type Apixaban [Eliquis] 5 mg PO BID 05/15/20 02/24/22 History Sotalol [Betapace] 80 mg PO BID 05/15/20 02/24/22 History DULoxetine HCL [Cymbalta] 60 mg PO HS 02/24/22 02/24/22 History traZODone HCL 100 mg PO HS 02/24/22 02/24/22 History Allergies Allergy/AdvReac Type Severity Reaction Status Date / Time No Known Allergies Allergy Verified 02/24/22 11:12 Physical Exam Vitals: Vital Signs Temp Pulse Pulse Resp BP BP Pulse Ox 02/25/22 07:00 97.4 F L 67 18 100/67 97 02/25/22 03:24 97.7 F 66 16 95/60 96 02/24/22 19:39 97.6 F 63 15 111/70 02/24/22 14:38 97.6 F 62 14 109/72 98 02/24/22 12:59 98 02/24/22 10:35 97.6 F 74 16 120/74 97 Intake and Output 02/24/22 02/25/22 02/25/22 22:59 06:59 14:59 Intake Total 240 Balance 240 Intake: Oral 240 Other: # Voids 1 1 Weight 79.379 kg Results 02/24/22 11:19 02/24/22 11:19 Cardiac Enzymes 02/24/22 02/24/22 02/24/22 Range/Units 11:19 11:19 16:14 AST 30 (14-36) U/L Troponin I <0.012 <0.012 (0.000-0.034) ng/mL Coagulation 02/24/22 Range/Units 11:19 PT 11.5 (9.0-12.0) sec APTT 27.5 (22.0-30.0) sec CBC 02/24/22 Range/Units 11:19 WBC 4.7 (3.8-10.6) k/uL RBC 4.80 (3.80-5.40) m/uL Hgb 14.6 (11.4-16.0) gm/dL Hct 44.4 (34.0-46.0) % Plt Count 213 (150-450) k/uL Comprehensive Metabolic Panel 02/24/22 Range/Units 11:19 Sodium 136 L (137-145) mmol/L Potassium 4.0 (3.5-5.1) mmol/L Chloride 102 (98-107) mmol/L Carbon Dioxide 28 (22-30) mmol/L BUN 22 H (7-17) mg/dL Creatinine 0.67 (0.52-1.04) mg/dL Glucose 95 (74-99) mg/dL Calcium 9.4 (8.4-10.2) mg/dL AST 30 (14-36) U/L ALT 19 (4-34) U/L Alkaline Phosphatase 53 (38-126) U/L Total Protein 6.6 (6.3-8.2) g/dL Albumin 4.0 (3.5-5.0) g/dL Current Medications Generic Name Dose Route Start Last Admin Trade Name Freq PRN Reason Stop Dose Admin Acetaminophen 650 mg 02/24/22 12:59 Acetaminophen Tab 325 Mg Tab PO Q6HR PRN Mild Pain or Fever > 100.5 Apixaban 5 mg 02/24/22 21:00 02/24/22 19:42 Apixaban 5 Mg Tab PO 5 mg BID CONCETTA Administration Protocol Duloxetine HCl 60 mg 02/24/22 21:00 02/24/22 19:42 Duloxetine Hcl 60 Mg Capsule.Dr PO 60 mg HS CONCETTA Administration Naloxone HCl 0.2 mg 02/24/22 12:54 Naloxone 0.4 Mg/Ml 1 Ml Vial IV Q2M PRN Opioid Reversal Sotalol HCl 80 mg 02/24/22 21:00 02/24/22 20:40 Sotalol 80 Mg Tab PO 80 mg BID CONCETTA Administration Trazodone HCl 100 mg 02/24/22 21:00 02/24/22 19:42 Trazodone Hcl 100 Mg Tab PO 100 mg HS CONCETTA Administration Intake and Output 02/24/22 02/25/22 02/25/22 22:59 06:59 14:59 Intake Total 240 Balance 240 Intake: Oral 240 Other: # Voids 1 1 Weight 79.379 kg 02/24/22 11:19 02/24/22 11:19
[2022-02-25 10:46] LABS: Basophils # (A) 0.02 X 10*3/uL (0.00-0.10); Basophils % (A) 0.4 %; Eosinophils % (A) 4.1 %; HCT 46.8 % (37.2-46.3); HGB 15.2 g/dL (12.0-15.0); Immature Grans, Automated 0.2 %; Lymphocytes # (A) 1.46 X 10*3/uL (0.90-5.00); Lymphocytes % (A) 29.8 %; MCH 30.2 pg (27.0-32.0); MCHC 32.5 g/dL (32.0-37.0); MCV 92.9 fL (80.0-97.0); Mean Platelet Volume 10.8 fL (9.5-12.2); Monocytes # (A) 0.38 X 10*3/uL (0.20-1.00); Monocytes % (A) 7.8 %; NRBC Per 100 WBC 0 /100 WBCS (0.0-0.0); Neutrophils # (A) 2.83 X 10*3/uL (1.80-7.70); Neutrophils % (A) 57.7 %; Platelet Count 226 X 10*3/uL (140-440); RBC 5.04 X 10*6/uL (4.10-5.20); RDW 13.2 % (11.5-14.5)
[2022-02-25 11:02] LABS: African American GFR (CKD) 90.3 (60.0-200.0); Albumin 4.5 g/dL (3.8-4.9); Albumin/Globulin Ratio 2.05 (1.60-3.17); BUN/Creat Ratio 19.13 Ratio (12.00-20.00); Blood Urea Nitrogen 15.3 mg/dL (9.0-27.0); Calcium 9.9 mg/dL (8.7-10.3); Globulin 2.2 g/dL (1.6-3.3); Non-African American GFR(CKD) 77.9 (60.0-200.0); Potassium 4.4 mmol/L (3.5-5.5); Total Bilirubin 0.5 mg/dL (0.30-1.20); Total Protein 6.7 g/dL (6.2-8.2)
--- NOTE | 2022-02-25 12:36 | NM ---
EXAMINATION TYPE: NM stress lexiscan cardiolite DATE OF EXAM: 02/25/2022 COMPARISON: NONE HISTORY: Chest pain TECHNIQUE: After the intravenous administration of 9.7 mCi Tc 99m Sestamibi - Cardiolite resting SPE CT images acquired 45 minutes post injection. The patient received 0.4mg Lexiscan, 26.3 mCi Tc 99m Sestamibi - Stress images obtained [address] injection FINDINGS: Review of stress and rest SPECT images demonstrates mild decreased uptake at the cardiac apex on stre ss and rest images only. Gated analysis shows normal wall motion with an estimated left ventricular ejection fraction of 75 %. IMPRESSION: No scintigraphic evidence for reversible ischemia. Consider echo correlation for elevated cardiac eje ction fraction. Mild decreased uptake noted at the cardiac apex noted incidentally on stress and rest images.
[2022-02-25] MEDS: APIXABAN 5 MG TAB PO SCH (13:19)
[2022-02-25] MEDS: SOTALOL 80 MG TAB PO SCH (13:20)
--- NOTE | 2022-02-25 13:39 | EST ---
EXERCISE STRESS AGE: 66 SEX: F HT: 5'7" WT: 175 lbs. PROTOCOL: Lexiscan STAGE: NA DURATION OF EXERCISE: 5 minute infusion HEART RATE REST: 68 BLOOD PRESSURE REST: 115/73 MAXIMUM HEART RATE ACHIEVED: 103 MAXIMUM BLOOD PRESSURE: 115/73 85% MPHR: 133 100% MPHR: 156 METS: NA INDICATIONS: Chest pain. CLINICAL INFORMATION: STRESS DATA: Heart rate 68, pressure 115/73 mmHg. Baseline EKG showed sinus mechanism. Lexiscan 0.4 mg was given to the patient per protocol. Max heart rate was 103 beats per minute. Maximum pressure was 115/73 mmHg. Clinically the patient did not have any symptoms and the EKG did not show any significant ST or T-wave abnormalities concerning for ischemia. CONCLUSION: 1. Nondiagnostic electrocardiogram stress testing in response to Lexiscan. 2. Please follow up on the Cardiolite portion on separate report from Radiology Department. MMODL / IJN: [id number] /
[2022-02-25 14:58] VITALS: BP 115/73; PULSE 68; RESP 16; TEMP 98.1
--- NOTE | 2022-02-25 15:53 | P.DS ---
Providers Date of admission: 02/24/22 13:14 Expected date of discharge: 02/25/22 Attending physician: Tiffany Miguel Consults: 02/24/22 13:12 Consult Physician Routine Consulting Provider: Matthew Browning Consult Reason/Comments: CP, afib Do you want consulting provider notified?: Yes Primary care physician: Tiffany Miguel Hospital Course: HISTORY OF PRESENT ILLNESS: This is a 66-year-old female a new patient of mine used to see Dr. Bravo in [place] prior to her move to [facility] with a previous medical history significant for hypothyroidism, history of depressive disorder, mixed hyperlipidemia, paroxysmal atrial fibrillation and her the care of cardiology in the [facility] patient presented to the emergency department at [facility] today because of chest tightness in the middle of the chest associated with increased palpitation which she described as a flareup of her atrial fibrillation on and off that has been happening over the last few days, patient contacted her entertainment usher and she did not get any call back, so she ended up coming to the ER for evaluation initial evaluation showed a a twelve-lead EKG with a normal sinus rhythm and no acute ST-T wave changes, cardiac enzymes are negative the rest of the laboratory evaluation were all normal but because of the presentation she was admitted to the hospital for evaluation and monitoring and for consultation by our cardiology group 02/25: Patient has been seen and evaluated by cardiology, acute coronary syndrome ruled out. Echocardiogram has been ordered and Lexiscan stress test Echocardiogram reveals EF of 50-55%, mild tricuspid regurgitation. Lexiscan stress test reveals no evidence of reversible ischemia. Patient will be discharged home today in stable condition. DISCHARGE DIAGNOSES 1. Chest pain likely noncardiac. Acute coronary syndrome ruled out. 2. Paroxysmal atrial fibrillation currently in sinus rhythm. 3. Hypothyroidism. 4. Insomnia. 5. Depressive disorder. DISCHARGE PLAN Home Greater than 35 minutes was utilized and coordinating patient's discharge. Impression and plan of care have been directed as dictated by the signing physician. Carolee Cheung nurse practitioner acting as scribe for signing physician. Patient Condition at Discharge: Good Plan - Discharge Summary Discharge Rx Participant: No New Discharge Prescriptions: Continue Apixaban [Eliquis] 5 mg PO BID Sotalol [Betapace] 80 mg PO BID traZODone HCL 100 mg PO HS DULoxetine HCL [Cymbalta] 60 mg PO HS Discharge Medication List Apixaban [Eliquis] 5 mg PO BID 05/15/20 [History] Sotalol [Betapace] 80 mg PO BID 05/15/20 [History] DULoxetine HCL [Cymbalta] 60 mg PO HS 02/24/22 [History] traZODone HCL 100 mg PO HS 02/24/22 [History] Follow up Appointment(s)/Referral(s): Tiffany Miguel MD [Primary Care Provider] - 1 Week Maryann Moody DO [REFERRING] - 1 Week Patient Instructions/Handouts: Angina (DC), Chest Pain (DC)
--- NOTE | 2022-02-25 19:00 | ECHOF ---
Referral Reason:LV function MEASUREMENTS -------- HEIGHT: 170.2 cm WEIGHT: 79.4 kg BP: 100/67 RVIDd: 3.4 cm (< 3.3) IVSd: 1.1 cm (0.6 - 1.1) LVIDd: 3.2 cm (3.9 - 5.3) LVPWd: 0.9 cm (0.6 - 1.1) IVSs: 1.3 cm LVIDs: 1.8 cm LVPWs: 1.6 cm LAESV Index (A-L): 14.67 ml/m Ao Diam: 3.0 cm (2.0 - 3.7) AV Cusp: 1.6 cm (1.5 - 2.6) LA Diam: 3.0 cm (2.7 - 3.8) MV EXCURSION: 11.540 mm (> 18.000) MV EF SLOPE: 28 mm/s (70 - 150) EPSS: 0.5 cm MV E Demond: 0.62 m/s MV DecT: 179 ms MV A Demond: 0.91 m/s MV E/A Ratio: 0.68 RAP: 5.00 mmHg RVSP: 19.13 mmHg FINDINGS -------- Sinus rhythm. This was a technically adequate study. The left ventricular size is normal. Left ventricular wall thickness is normal. Overall left vent ricular systolic function is normal with, an EF between 55 - 60 %. The right ventricle is moderately enlarged. Normal LA size by volume 22+/-6 ml/m2. The right atrial size is normal. Interatrial and interventricular septum intact. There is no evidence of aortic regurgitation. There is no evidence of aortic stenosis. No mitral regurgitation. Mild tricuspid regurgitation present. There is no evidence of pulmonary hypertension. The right v entricular systolic pressure, as measured by Doppler, is 19.13mmHg. There is no pulmonic regurgitation present. The aortic root size is normal. IVC Not well visulized. There is no pericardial effusion. CONCLUSIONS -------- 1. The left ventricular size is normal. 2. Left ventricular wall thickness is normal. 3. Overall left ventricular systolic function is normal with, an EF between 55 - 60 %. 4. The right ventricle is moderately enlarged. 5. Mild tricuspid regurgitation present. [employer]OM SUPERVISOR: Fay Ga, [facility]
== END 2022-02-25 17:55 ==
LOC: EC 10:34 → 6NMEDSUR 13:14
PROVIDERS: ADMIT Internal Medicine; ATTEND Internal Medicine
DX: R07.89 Other chest pain (principal); I48.0 Paroxysmal atrial fibrillation; R55 Syncope and collapse; E78.2 Mixed hyperlipidemia; E03.9 Hypothyroidism, unspecified; I07.1 Rheumatic tricuspid insufficiency; G47.00 Insomnia, unspecified; F32.A Depression, unspecified; Z87.09 Personal history of other diseases of the respiratory system; Z90.710 Acquired absence of both cervix and uterus; Z87.891 Personal history of nicotine dependence; Z90.49 Acquired absence of other specified parts of digestive tract; Z98.890 Other specified postprocedural states; Z80.0 Family history of malignant neoplasm of digestive organs; Z80.1 Family history of malignant neoplasm of trachea, bronchus and lung; Z79.01 Long term (current) use of anticoagulants; Z79.899 Other long term (current) drug therapy; J44.9 Chronic obstructive pulmonary disease, unspecified; Z82.49 Family history of ischemic heart disease and other diseases of the circulatory system
CPT/HCPCS: 96360; 96361; 99285; 36415; 93005; 93017; 93306; 83880; 80053 ×2; 83735; 84484; 85025 ×2; 85610; 85730; 81003; 71046; 78452; G0378 ×2; A9500; J2785

== ENCOUNTER 2023-02-17 11:28 | Day surgery (SDC) | payer MEDICARE ==
[~2023-02-17 11:28] MED LIST: ATROPINE SULFATE 0.4 MG/ML 1 ML VIAL IM ONE; DEXAMETHASONE SOD PHOSPHATE 4 MG/ML 1 ML VIAL IV ONE; HYDROmorphone 0.5 MG/0.5 ML SYRINGE IVP PRN; LACTATED RINGERS 1,000 ML IV SCH; LIDOCAINE 1% (10MG/ML) FOR IV START INTRADERMA PRN; MIDAZOLAM 2 MG/2 ML VIAL IV PRN; ONDANSETRON 4 MG/2 ML VIAL IVP ONE
[2023-02-17 12:10] VITALS: TEMP 96.8
[2023-02-17] MEDS ORDERED: PROPOFOL 10 MG/ML 20 ML VIAL IV ONE (12:43)
[2023-02-17] MEDS ORDERED: LIDOCAINE 2% INJ 20 MG/ML (2 ML VIAL) ONE (12:43)
[2023-02-17] MEDS ORDERED: MIDAZOLAM 2 MG/2 ML VIAL ONE (12:43)
[2023-02-17] MEDS ORDERED: KETAMINE 10 MG/ML 20 ML VIAL ONE (12:43)
[2023-02-17] MEDS ORDERED: LIDOCAINE 2% INJ 20 MG/ML INTRATRACH ONE ×2 (12:52→12:59)
[2023-02-17 13:12] VITALS: BP 126/78; PULSE 94; RESP 16
[2023-02-17] MEDS ORDERED: ACETAMINOPHEN TAB 500 MG TAB ONE (13:28)
[2023-02-17] MEDS ORDERED: ACETAMINOPHEN TAB 500 MG TAB PO STA (13:31)
--- NOTE | 2023-02-17 19:25 | PCN ---
PROCEDURE NOTE This is a Pulmonary/Critical Care procedure. PROCEDURES PERFORMED: Bronchoscopy, airway examination, therapeutic lavage, and bronchoalveolar lavage. OPERATORS: 1. Dr. Odom. 2. Dr. Austin. ANESTHESIA PROVIDED: General anesthesia. LOCATION: The patient's procedure took place in room #1 in the [facility]. There were informed consent and universal time-out. PREOPERATIVE DIAGNOSES: Chronic cough, chronic bronchitis, and shortness of breath. POSTOPERATIVE DIAGNOSES: Chronic cough, chronic bronchitis, and shortness of breath. DESCRIPTION OF PROCEDURE: After the patient was adequately sedated by Anesthesia, the bronchoscope was inserted through the right nostril. It passed through the right nasopharynx into the oropharynx. The hypopharynx was identified. The structures in the hypopharynx were quite crowded, but normal. They included the anterior commissure, true cords, false cords, arytenoids, piriform sinuses - right and left, valleculae, and epiglottis. After topicalization of the glottis, the bronchoscope was pushed through the glottic opening into the trachea. The trachea appeared relatively normal, although there was some degree of erythema. Tracheal beto was sharp. Right and left mainstem were topicalized. The right upper lobe and its 3 segments, right middle lobe and its 2 segments, right lower lobe and its 5 segments, lingula and its 2 segments, the left upper lobe proper and its 2 segments, and the left lower lobe and its 4 segments all had similar findings of diffuse moderate bronchitis. There was mucosal friability. There were hyperemia and erythema of the airways. There was no dominant mass or tumor. There were secretions noted throughout. They were thin and frothy. The bronchoscope was wedged into the right middle lobe. Formal BAL took place. 30 mL of fluid was recovered. It will be sent to the laboratory for analysis. There was no bleeding. The bronchoscope was withdrawn, and the patient will be recovered. The patient tolerated the procedure well without complication. MMODL / IJN: [id number] /
[2023-02-17 23:38] LABS: Appearance,BF Cloudy
== END 2023-02-17 14:14 | disposition home or self-care (01) ==
LOC: ORWHC2ENDO 11:28
PROVIDERS: ATTEND Internal Medicine Critical Care Medicine
DX: J42 Unspecified chronic bronchitis (principal); I48.0 Paroxysmal atrial fibrillation; E78.5 Hyperlipidemia, unspecified; I50.9 Heart failure, unspecified; E03.9 Hypothyroidism, unspecified; F32.A Depression, unspecified; Z79.899 Other long term (current) drug therapy; Z79.890 Hormone replacement therapy; Z90.710 Acquired absence of both cervix and uterus
CPT/HCPCS: 87798 ×3; 87496; 87498; 87529; 88108; 88305; 89050; 87252; 87502; 87634; 87070; 87205; 87116; 87102; 87206; 31624; J2001 ×2; J2250; J0461; J1100; J2405; J2704

== ENCOUNTER → 2023-08-11 | Outpatient (CLI) | payer MEDICARE ==
[2023-08-11 11:56] LABS: African American GFR (CKD) 80 (>60 ml/min/1.73 sqM); Blood Urea Nitrogen 22 mg/dL (7-17); Non-African American GFR(CKD) 69 (>60 ml/min/1.73 sqM)
--- NOTE | 2023-08-16 19:36 | CT ---
EXAMINATION TYPE: CT chest w con DATE OF EXAM: 08/11/2023 COMPARISON: 01/02/2023 HISTORY: 68-year-old female C1 8.2, Hx lung nodules, hx neoplasm ascending colon TECHNIQUE: Contiguous axial scanning of the chest after the administration of 100 mL of Isovue 300. Coronal/sagittal reconstructions performed. CT DLP: 322.90mGycm. Automatic exposure control utilized for a dose reduction. FINDINGS: The heart is normal size without pericardial effusion. Aorta normal caliber with conventional branching anatomy. No thoracic lymphadenopathy by CT size criteria. Mild diffuse bronchial wall thickening. This may reflect bronchitis or chronic asthma. No consolidati on or pleural effusion. Mild dependent atelectasis is present. Tiny 3 mm peripheral pulmonary nodule right midlung, axial image 33 is unchanged. The groundglass opacity lateral left lower lobe seen on 01/02/2023 has resolved suggesting a previous i nfectious/inflammatory focus. Otherwise, no new suspicious pulmonary nodules are identified. Small hiatal hernia. Similar mild thickening of the left adrenal gland without discrete nodularity. C holecystectomy clips. Bones: No osseous destructive process. IMPRESSION: 1. The previous groundglass opacity lateral left lower lobe has resolved suggesting a previous infect ious/inflammatory focus. A tiny 3 mm right mid lung pulmonary nodule remains unchanged suggesting a b enign etiology. No new suspicious pulmonary nodules are identified. 2. Small hiatal hernia.
== END | disposition home or self-care (01) ==
LOC: RADCTMAIN 10:44
PROVIDERS: ATTEND Internal Medicine Critical Care Medicine
DX: C18.2 Malignant neoplasm of ascending colon (principal); K44.9 Diaphragmatic hernia without obstruction or gangrene; R91.1 Solitary pulmonary nodule; R91.8 Other nonspecific abnormal finding of lung field
CPT/HCPCS: 82565; 84520; 71260; 36415; Q9967

== ENCOUNTER → 2023-10-05 | Outpatient (CLI) | payer MEDICARE ==
--- NOTE | 2023-10-05 15:27 | BD ---
EXAMINATION TYPE: Axial Bone Density DATE OF EXAM: 10/05/2023 CLINICAL HISTORY: 68 years old Female. ICD-10 CODE: M85.851 DISORDER OF BONE Height: 65.5in Weight: 196lb FRAX RISK QUESTIONS: History of Fracture in Adulthood: yes Secondary Osteoporosis: RISK FACTORS HISTORY OF: Family History of Osteoporosis: yes Active: yes Postmenopausal woman: yes MEDICATIONS: Thyroid Medications: Which medication: Levothyroxine How Lon years Additional Medications: statins Additional History: ankle fx, hand fx EXAM MEASUREMENTS: Bone mineral densitometry was performed using the VR1 System. Bone mineral density as measured about the Lumbar spine is: ----- L1-L4(G/cm2): 1.142 T Score Values are as follows: ----- L1: -0.6 ----- L2: -0.4 ----- L3: 0.3 ----- L4: -0.8 ----- L1-L4: -0.3 Z Score Values are as follows: ----- L1: 0.2 ----- L2: 0.4 ----- L3: 1.1 ----- L4: 0.1 ----- L1-L4: 0.5 First dexa at [facility] Bone mineral density about the R hip (g/cm2): 0.962 Bone mineral density about the L hip (g/cm2): 0.960 T Score values are as follows: -----R Neck: -1.2 -----L Neck: -1.1 -----R Total: -0.4 -----L Total: -0.4 Z Score values are as follows: -----R Neck: -0.2 -----L Neck: -0.1 -----R Total: 0.3 -----L Total: 0.3 FRAX%s: The graph provided illustrates a 13.3% chance for a major osteoporotic fx and a 1.1% chance f or the hips probability for fx in 10 years time. IMPRESSION: Normal (Values between +1 and -1 indicate normal bone mass). Consider repeating this study in 5 year s or sooner if there is some new clinical indication. NOTE: T-SCORE=SD OF THE YOUNG ADULT MEAN.
== END | disposition home or self-care (01) ==
LOC: RADBDWWP 14:54
PROVIDERS: ATTEND Internal Medicine
DX: M85.851 Other specified disorders of bone density and structure, right thigh (principal); Z78.0 Asymptomatic menopausal state
CPT/HCPCS: 77080

== ENCOUNTER 2024-01-09 11:32 | Day surgery (SDC) | payer MEDICARE ==
[~2024-01-09 11:32] MED LIST changes: -ATROPINE SULFATE 0.4 MG/ML 1 ML VIAL IM ONE; -DEXAMETHASONE SOD PHOSPHATE 4 MG/ML 1 ML VIAL IV ONE; -HYDROmorphone 0.5 MG/0.5 ML SYRINGE IVP PRN; -LACTATED RINGERS 1,000 ML IV SCH; -MIDAZOLAM 2 MG/2 ML VIAL IV PRN; -ONDANSETRON 4 MG/2 ML VIAL IVP ONE; +ONDANSETRON 4 MG/2 ML VIAL IVP PRN
[2024-01-09] MEDS: LACTATED RINGERS 1,000 ML IV SCH (12:44)
[2024-01-09 13:05] VITALS: RESP 16; TEMP 97
[2024-01-09] MEDS ORDERED: PROPOFOL 10 MG/ML 20 ML VIAL IV ONE (13:14)
[2024-01-09] MEDS ORDERED: LIDOCAINE 1% INJ 10MG/ML (20 ML MDV) ONE (13:14)
--- NOTE | 2024-01-09 13:32 | P.PCN ---
Date of Procedure: 01/09/24 Procedure(s) Performed: BRIEF HISTORY: Patient is a 68-year-old pleasant female scheduled for an elective colonoscopy as a part of the for colon cancer and family history of colon cancer. Her mother was diagnosed with colon cancer at age 70. PROCEDURE PERFORMED: Colonoscopy. PREOPERATIVE DIAGNOSIS: .Screening for colon cancer and family history of colon cancer IV sedation per Anesthesia. PROCEDURE: After informed consent was obtained, the patient, was brought into the endoscopy unit. IV sedation was administered by Anesthesia under continuous monitoring. Digital rectal examination was normal. Initially the Olympus CF-160 flexible video colonoscope was then inserted in the rectum, gradually advanced into the cecum without any difficulty. Careful examination was performed as the scope was gradually being withdrawn. Ileocecal valve and the appendiceal orifice were visualized and appeared normal. Prep was excellent. Mucosa of the cecum, ascending colon, transverse colon, descending colon, sigmoid colon, and rectum appeared normal. Retroflexion was performed in the rectum an8 internal h emorrhoid sere seen. The patient tolerated the procedure well. IMPRESSION: Normal-appearing colon from rectum to cecum with no evidence of colorectal neoplasia. . with internal hemorrhoids. RECOMMENDATIONS: Findings of this examination were discussed with the patient []as well as her family. She was advised to have a repeat screening colonoscopy in 5 years because of the family history of colon cancer.
[2024-01-09 14:03] VITALS: BP 143/93; PULSE 75
== END 2024-01-09 14:05 | disposition home or self-care (01) ==
LOC: ORWHC2ENDO 11:32
PROVIDERS: ATTEND Internal Medicine Gastroenterology
DX: Z12.11 Encounter for screening for malignant neoplasm of colon (principal); K64.8 Other hemorrhoids; I48.91 Unspecified atrial fibrillation; E07.9 Disorder of thyroid, unspecified; F32.A Depression, unspecified; Z79.890 Hormone replacement therapy; Z79.899 Other long term (current) drug therapy; Z98.890 Other specified postprocedural states; Z80.0 Family history of malignant neoplasm of digestive organs; Z87.891 Personal history of nicotine dependence
CPT/HCPCS: J2001; J2704; G0105; 45378

== ENCOUNTER → 2024-07-02 | Outpatient (CLI) | payer MEDICARE ==
--- NOTE | 2024-07-25 15:40 | CT ---
EXAMINATION TYPE: CT chest w con CT DLP: 282.70 mGycm, Automated exposure control for dose reduction was used. DATE OF EXAM: 07/02/2024 COMPARISON: CT chest 08/11/2023, 01/02/2023 CLINICAL INDICATION: Female, 68 year old with history of lung nodule. TECHNIQUE: Multiple axial images were obtained through the chest following the administration of 100 cc of Isovue 300. . Coronal and sagittal reformats reviewed. Delayed interpretation due to institution cyber attack. FINDINGS: LUNGS/ PLEURA: No pleural effusion, pneumothorax, or focal consolidation. Minimal dependent bilateral lower lobe subsegmental atelectasis. Stable tiny 3 mm peripheral pulmonary nodule in the right midlung (series 4, image 33). No new or enlarging pulmonary nodule identified. No new suspicious groundglass opacities. AIRWAY: Patent and unremarkable.. HEART: Size within normal limits. No pericardial effusion. MEDIASTINUM: No evidence of adenopathy. VASCULATURE: No aortic aneurysm. MUSCULOSKELETAL: No acute osseous abnormalities SOFT TISSUES/LYMPH NODES: Unremarkable. LOWER NECK: No significant findings. UPPER ABDOMEN: Postcholecystectomy changes. Small hiatal hernia. Similar thickening of the left adrenal gland without discrete nodularity. IMPRESSION: 1. No acute thoracic process. 2. Stable tiny 3 mm right midlung pulmonary nodule. No new or enlarging pulmonary nodules. No suspicious new groundglass opacities. MTDD
== END | disposition home or self-care (01) ==
LOC: RADCTMAIN 13:16
PROVIDERS: ATTEND Internal Medicine
DX: R91.1 Solitary pulmonary nodule (principal)
CPT/HCPCS: 71260; 36415; Q9967

== ENCOUNTER → 2024-07-02 | Outpatient (CLI) | payer MEDICARE ==
--- NOTE | 2024-07-30 08:37 | MM ---
Reason for Exam: Screening (asymptomatic). Last mammogram was performed 2 year(s) and 7 month(s) ago. Patient History: Menarche at age 14. Left ovary removed at age 55. Right ovary removed at age 55. Hysterectomy at age 55. Postmenopausal. Risk Values: Nicole 5 year model risk: 1.2%. NCI Lifetime model risk: 4.4%. Prior Study Comparison: 08/24/2020 Screening Mammogram, [facility]. 11/29/2021 Bilateral Screening Mammogram, [facility]. Tissue Density: The breasts are heterogeneously dense, which may obscure small masses. Findings: Analyzed By CAD. Right breast: There is no suspicious group of microcalcifications or new suspicious mass. Left breast: There is no suspicious group of microcalcifications or new suspicious mass. Overall Assessment: Negative, BI-RAD 1 Management: Screening Mammogram of both breasts in [address] [facility] will attempt to contact patient to return for supplemental views and ultrasound if indicated. Patient should continue monthly self-breast exams. A clinical breast exam by your physician is recommended on an annual basis. This exam should not preclude additional follow-up of suspicious palpable abnormalities. Note on Nicole scores and lifetime risk: 1. A Nicole score greater than 3% is considered moderate risk. If this is the case, consider specialist referral to assess eligibility for a risk reducing agent. 2. If overall lifetime risk for the development of breast cancer is 20% or higher, the patient may qualify for future screening with alternating mammogram and breast MRI. Electronically signed and approved by: Maxime Casiano DO
== END | disposition home or self-care (01) ==
LOC: RADMAMWWP 13:16
PROVIDERS: ATTEND Internal Medicine
DX: Z12.31 Encounter for screening mammogram for malignant neoplasm of breast (principal); Z78.0 Asymptomatic menopausal state; Z90.721 Acquired absence of ovaries, unilateral
CPT/HCPCS: 77063; 77067